=== PATIENT | male | born 1995 | race Two or more races ===

== ENCOUNTER 2018-01-31 07:02 | Inpatient (IN) | payer BC ==
[~2018-01-31] VITALS: Ht 170.2 cm; Wt 72.6 kg
[2018-01-31 07:32] VITALS: BP 112/79
--- NOTE | 2018-01-31 07:32 | Emergency Room Report ---
History of Present Illness General Chief Complaint: Palpitations Source: Patient Present Illness HPI Patient states that around 5:30 this morning he woke up to use the restroom. He states he suddenly became nauseated and shortly thereafter developed palpitations. He states that since that time he has had persistent palpitations. He states it feels like his heart is beating very fast. He states at times it feels like it will slow down and then speed up again. He admits to using marijuana daily and regularly. He denies other drugs such as amphetamines. He does drink occasional alcohol. He denies tobacco use. He denies recent illness. He denies cough or congestion. He denies fever or chills. He denies chest pain or abdominal pain. He has no other complaints. Allergies: Coded Allergies: No Known Allergies (Unverified , 01/31/18) Patient History Past Medical History: see triage record Past Surgical History: appy Social History: Reports: alcohol use - occassional, drug use; Denies: smoking Reviewed Nursing Documentation: PMH: Agreed; PSxH: Agreed Nursing Documentation-PMH Past Medical History: No Stated History Review of Systems All Other Systems: negative except mentioned in HPI Physical Exam Vital Signs Date Time Temp Pulse Resp B/P (MAP) Pulse Ox O2 Delivery O2 Flow Rate FiO2 01/31/18 07:11 98.0 88 18 120/80 98 Room Air 98.1 Sp02 EP Interpretation: reviewed, normal General Appearance: no apparent distress, alert, GCS 15, non-toxic Head: normocephalic, atraumatic Eyes: bilateral eye normal inspection, bilateral eye PERRL ENT: hearing grossly normal, normal pharynx, no angioedema, normal voice Neck: full range of motion, supple/symm/no masses Respiratory: chest non-tender, lungs clear, normal breath sounds, no respiratory distress, no retraction, no accessory muscle use, speaking full sentences Cardiovascular #1: no edema, tachycardia, irregularly irregular Gastrointestinal: normal bowel sounds, non tender, soft, non-distended, no guarding, no rebound Rectal: deferred Musculoskeletal: back normal, gait/station normal, normal range of motion, non- tender Neurologic: alert, oriented x3, responsive, motor strength/tone normal, sensory intact, speech normal Psychiatric: judgement/insight normal, memory normal, mood/affect normal, no suicidal/homicidal ideation Skin: normal color, no rash, warm/dry, well hydrated Medical Decision Making Diagnostic Impression: Primary Impression: Atrial fibrillation with RVR ER Course This patient presents with atrophic fibrillation with a rapid ventricular response. This is unusual in an otherwise healthy young male. He does state that the onset was this morning around 5:30 AM. He was given 2 IV doses of diltiazem. He had improvement in his rate after this but did continue to have a rapid ventricular response. I discussed the case with the on-call [employer] worker Dr. Suazo. He recommended the patient undergo an echocardiogram. The patient did get an echocardiogram here in the emergency department. The echocardiogram results were called to me after the patient was admitted and there were no major findings. Please see official report. He is admitted for monitoring, rate control and possible cardioversion as an inpatient. Laboratory Tests Test 01/31/18 07:32 01/31/18 07:50 White Blood Count 6.8 K/UL (4.8-10.8) Red Blood Count 5.40 M/UL (4.70-6.10) Hemoglobin 17.1 G/DL (14.2-18.0) Hematocrit 48.4 % (42.0-52.0) Mean Corpuscular Volume 90 FL (80-99) Mean Corpuscular Hemoglobin 31.7 PG (27.0-31.0) H Mean Corpuscular Hemoglobin Concent 35.4 G/DL (32.0-36.0) Red Cell Distribution Width 10.2 % (11.6-14.8) L Platelet Count 261 K/UL (150-450) Mean Platelet Volume 6.7 FL (6.5-10.1) Neutrophils (%) (Auto) 53.7 % (45.0-75.0) Lymphocytes (%) (Auto) 31.0 % (20.0-45.0) Monocytes (%) (Auto) 7.2 % (1.0-10.0) Eosinophils (%) (Auto) 6.2 % (0.0-3.0) H Basophils (%) (Auto) 2.0 % (0.0-2.0) Sodium Level 141 MMOL/L (136-145) Potassium Level 3.4 MMOL/L (3.5-5.1) L Chloride Level 105 MMOL/L (98-107) Carbon Dioxide Level 31 MMOL/L (21-32) Anion Gap 6 mmol/L (5-15) Blood Urea Nitrogen 14 mg/dL (7-18) Creatinine 0.9 MG/DL (0.55-1.30) Estimate Glomerular Filtration Rate > 60 mL/min (>60) Glucose Level 107 MG/DL (74-106) H Calcium Level 8.8 MG/DL (8.5-10.1) Total Bilirubin 0.2 MG/DL (0.2-1.0) Aspartate Amino Transferase (AST) 13 U/L (15-37) L Alanine Aminotransferase (ALT) 34 U/L (12-78) Alkaline Phosphatase 106 U/L (46-116) Total Creatine Kinase 78 U/L (26-308) Creatine Kinase MB 1.0 NG/ML (0.0-3.6) Creatine Kinase MB Relative Index 1.2 Troponin I 0.000 ng/mL (0.000-0.056) Total Protein 7.2 G/DL (6.4-8.2) Albumin 4.0 G/DL (3.4-5.0) Globulin 3.2 g/dL Albumin/Globulin Ratio 1.3 (1.0-2.7) Thyroid Stimulating Hormone (TSH) 1.421 uiU/mL (0.358-3.740) Free Thyroxine 1.12 NG/DL (0.76-1.46) Serum Alcohol < 3 mg/dL Urine Opiates Screen Negative (NEGATIVE) Urine Barbiturates Screen Negative (NEGATIVE) Phencyclidine (PCP) Screen Negative (NEGATIVE) Urine Amphetamines Screen Negative (NEGATIVE) Urine Benzodiazepines Screen Negative (NEGATIVE) Urine Cocaine Screen Negative (NEGATIVE) Urine Marijuana (THC) Screen Positive (NEGATIVE) H EKG Diagnostic Results Rate: tachycardiac Rhythm: other - A.fib ST Segments: no acute changes Rhythm Strip Diag. Results EP Interpretation: yes Rate: 140's Rhythm: no PVC's, other - A.fib Chest X-Ray Diagnostic Results Chest X-Ray Diagnostic Results : Chest X-Ray Ordered: Yes # of Views/Limited/Complete: 1 View Indication: Other Interpretation: no consolidation, no effusion, no pneumothorax, no acute cardiopulmonary disease Impression: No acute disease Electronically Signed by: Lashae CT/MRI/US Diagnostic Results CT/MRI/US Diagnostic Results : Imaging Test Ordered: Echocardiogram Impression See official report in EMR Last Vital Signs Date Time Temp Pulse Resp B/P (MAP) Pulse Ox O2 Delivery O2 Flow Rate FiO2 01/31/18 07:11 98.0 88 18 120/80 98 Room Air 98.1 Status: improved Disposition: ADMITTED INPATIENT Condition: Serious Scripts No Active Prescriptions or Reported Meds Karina Muniz DO Jan 31, 2018 07:31
[2018-01-31 07:59] LABS: EOSINOPHILS % (AUTO) 6.2 % (0.0-3.0); HEMATOCRIT 48.4 % (42.0-52.0); HEMOGLOBIN 17.1 G/DL (14.2-18.0); MEAN CORPUSCULAR VOLUME 90 FL (80-99); MONOCYTES % (AUTO) 7.2 % (1.0-10.0); NEUTROPHILS % (AUTO) 53.7 % (45.0-75.0); PLATELET COUNT 261 K/UL (150-450); RED CELL DISTRIBUTION WIDTH 10.2 % (11.6-14.8); WHITE BLOOD COUNT 6.8 K/UL (4.8-10.8)
[2018-01-31 08:23] LABS: ALANINE AMINOTRANSFERASE 34 U/L (12-78); ALBUMIN/GLOBULIN RATIO 1.3 (1.0-2.7); ALKALINE PHOSPHATASE 106 U/L (46-116); ANION GAP 6 mmol/L (5-15); ASPARTATE AMINO TRANSFERASE 13 U/L (15-37); BILIRUBIN,TOTAL 0.2 MG/DL (0.2-1.0); CALCIUM 8.8 MG/DL (8.5-10.1); CARBON DIOXIDE 31 MMOL/L (21-32); CHLORIDE 105 MMOL/L (98-107); CREATINE KINASE 78 U/L (26-308); CREATININE 0.9 MG/DL (0.55-1.30); POTASSIUM 3.4 MMOL/L (3.5-5.1); SODIUM 141 MMOL/L (136-145)
[2018-01-31 08:32] LABS: BLOOD UREA NITROGEN 14 mg/dL (7-18)
[2018-01-31] MEDS ORDERED: dilTIAZem HCl 25mg/5ml Inj IVP ONE ×2 (08:45→13:15)
[2018-01-31 09:00] VITALS: BP 103/85
[2018-01-31 11:00] VITALS: BP 119/83
--- NOTE | 2018-01-31 11:10 | Diagnostic Imaging Report ---
Indication: Chest pain Technique: One view of the chest Comparison: none Findings: Lungs and pleural spaces are clear. The heart size is normal Impression: No acute process
[2018-01-31 13:20] VITALS: BP 115/71
[2018-01-31] MEDS ORDERED: dilTIAZem HCl 60mg tab ORAL ONE (15:30)
[2018-01-31] MEDS ORDERED: dilTIAZem HCl 25mg/5ml Inj IVP SCH (15:33)
[2018-01-31] MEDS ORDERED: Metoprolol 5mg/5ml Inj IVP SCH (15:41)
[2018-01-31] MEDS ORDERED: traMADol 50mg tab ORAL PRN (15:45)
[2018-01-31] MEDS: Metoprolol 25mg tab ORAL SCH (16:03)
--- NOTE | 2018-01-31 17:36 | Cardiology Progress Note ---
Assessment/Plan Assessment/Plan converted to sinus post iv bb keep off meds check d dimer and if abn will do further testing avoid stimulant to review echo exclude congenital heart disease as etiology of afib as well will follow thank you [id number] Objective Last 24 Hour Vital Signs Date Time Temp Pulse Resp B/P (MAP) Pulse Ox O2 Delivery O2 Flow Rate FiO2 01/31/18 16:13 Room Air 01/31/18 16:04 135 125/81 01/31/18 16:03 145 125/81 01/31/18 16:00 86 01/31/18 14:50 98.0 130 16 128/84 99 Room Air 98.0 01/31/18 13:34 135 128/84 01/31/18 13:20 98.0 130 16 115/71 99 Room Air 98.0 01/31/18 11:00 116 16 119/83 100 Room Air 01/31/18 09:00 103 16 103/85 100 Room Air 01/31/18 08:46 133 114/87 01/31/18 07:32 133 16 112/79 100 Room Air 01/31/18 07:11 98.0 88 18 120/80 98 Room Air 98.1 Laboratory Tests Test 01/31/18 07:32 01/31/18 07:50 White Blood Count 6.8 K/UL (4.8-10.8) Red Blood Count 5.40 M/UL (4.70-6.10) Hemoglobin 17.1 G/DL (14.2-18.0) Hematocrit 48.4 % (42.0-52.0) Mean Corpuscular Volume 90 FL (80-99) Mean Corpuscular Hemoglobin 31.7 PG (27.0-31.0) H Mean Corpuscular Hemoglobin Concent 35.4 G/DL (32.0-36.0) Red Cell Distribution Width 10.2 % (11.6-14.8) L Platelet Count 261 K/UL (150-450) Mean Platelet Volume 6.7 FL (6.5-10.1) Neutrophils (%) (Auto) 53.7 % (45.0-75.0) Lymphocytes (%) (Auto) 31.0 % (20.0-45.0) Monocytes (%) (Auto) 7.2 % (1.0-10.0) Eosinophils (%) (Auto) 6.2 % (0.0-3.0) H Basophils (%) (Auto) 2.0 % (0.0-2.0) Sodium Level 141 MMOL/L (136-145) Potassium Level 3.4 MMOL/L (3.5-5.1) L Chloride Level 105 MMOL/L (98-107) Carbon Dioxide Level 31 MMOL/L (21-32) Anion Gap 6 mmol/L (5-15) Blood Urea Nitrogen 14 mg/dL (7-18) Creatinine 0.9 MG/DL (0.55-1.30) Estimat Glomerular Filtration Rate > 60 mL/min (>60) Glucose Level 107 MG/DL (74-106) H Calcium Level 8.8 MG/DL (8.5-10.1) Total Bilirubin 0.2 MG/DL (0.2-1.0) Aspartate Amino Transf (AST/SGOT) 13 U/L (15-37) L Alanine Aminotransferase (ALT/SGPT) 34 U/L (12-78) Alkaline Phosphatase 106 U/L (46-116) Total Creatine Kinase 78 U/L (26-308) Creatine Kinase MB 1.0 NG/ML (0.0-3.6) Creatine Kinase MB Relative Index 1.2 Troponin I 0.000 ng/mL (0.000-0.056) Total Protein 7.2 G/DL (6.4-8.2) Albumin 4.0 G/DL (3.4-5.0) Globulin 3.2 g/dL Albumin/Globulin Ratio 1.3 (1.0-2.7) Thyroid Stimulating Hormone (TSH) 1.421 uiU/mL (0.358-3.740) Free Thyroxine 1.12 NG/DL (0.76-1.46) Serum Alcohol < 3 mg/dL Urine Opiates Screen Negative (NEGATIVE) Urine Barbiturates Screen Negative (NEGATIVE) Phencyclidine (PCP) Screen Negative (NEGATIVE) Urine Amphetamines Screen Negative (NEGATIVE) Urine Benzodiazepines Screen Negative (NEGATIVE) Urine Cocaine Screen Negative (NEGATIVE) Urine Marijuana (THC) Screen Positive (NEGATIVE) Kvng Brown MD Jan 31, 2018 17:36
[2018-01-31 20:00] VITALS: BP 109/61
[2018-01-31] MEDS: Heparin 5000 units/ml inj SUBQ SCH (20:36)
[2018-01-31] MEDS ORDERED: Metoprolol 25mg tab ORAL SCH (21:00)
[2018-02-01] VITALS: BP 102/58
--- NOTE | 2018-02-01 02:45 | Consultation ---
DATE OF CONSULTATION: 01/31/2018 CARDIOLOGY CONSULTATION CONSULTING PHYSICIAN: Kvng Suazo M.D. REFERRING PHYSICIAN: Liliana Muhammad M.D. REASON FOR REFERRAL: Atrial fibrillation with rapid ventricular response. HISTORY OF PRESENT ILLNESS: This is a 22-year-old gentleman, who presented to the hospital emergency room because of palpitations, got up this morning to urinate, developed sensation of nausea he has at times in the morning, but this time was more severe and he felt his heart was beating fast, became lightheaded, felt like he was going to pass out, brought himself to bed, he laid down, persistent symptoms him. He was brought to the emergency room by family members, was noted to have atrial fibrillation with rapid ventricular response at times through my discussion with the emergency room physician, heart rates up to even 200 beats per minute. Diltiazem was given on several occasions with improvement in his heart, but temporarily basis and after discussion with the emergency room physician that the thyroid function test and urine drug screen was negative. The patient was admitted to the hospital for further evaluation. I was notified by the staff on arrival that the patient's heart rate increased up to 170. Beta-blockers were ordered and administered and on my arrival, the patient is back in normal sinus rhythm. There is no pain, pressure, tightness, or heaviness in his chest. He did not have any shortness of breath, no PND, no orthopnea, has just the palpitation as noted and no pain, pressure, or tightness in the chest. He actually has not had any alcoholic beverages since one week ago. He denies any drug use and only takes marijuana. No use of any stimulants, occasionally drinks sodas. PAST MEDICAL HISTORY: Fairly unremarkable except for appendectomy, has no surgical procedure. ALLERGIES: He is not allergic to any medications. SOCIAL HISTORY: He does not smoke. Occasionally drinks alcoholic beverages on rare basis and the only drug that he uses is marijuana, he uses twice a day as recent as last night. REVIEW OF SYSTEMS: GASTROINTESTINAL: Positive for nausea, but no vomiting. No bloody or black stool. GENITOURINARY: No discomfort on urination. No bloody urination. PULMONARY: Negative. CONSTITUTIONAL: Negative. He did feel cold this morning when he was having the episodes. NEUROLOGIC: Negative otherwise. PHYSICAL EXAMINATION: GENERAL: Shows to be a young gentleman, in no respiratory distress. NECK: Supple. No jugular venous distention. No abdominojugular reflux noted. LUNGS: Clear to auscultation and percussion. CARDIAC: S1 is normal. S2 is normal. Regular rate and rhythm. No heaves, thrills, or gallops noted. ABDOMEN: Soft and nontender. Positive bowel sounds. EXTREMITIES: There is no clubbing, cyanosis, or edema. He has good excellent pulses in dorsalis pedis and radials bilaterally. LABORATORY AND DIAGNOSTIC DATA: A chest x-ray performed in the emergency room is fairly unremarkable. Blood tests, white count 6.8, hemoglobin 17.1, and platelet count of 261. Sodium is 141, potassium 3.4, chloride 105, bicarbonate 31, BUN 14, creatinine 0.9, glucose of 107, and calcium is 8.8. AST and ALT are within normal limits. CPK of 78. Troponin 0.00. His free T4 1.14, TSH of 1.421. Albumin of 3.4. Tox screen was positive for marijuana only. Alcohol, cocaine, amphetamines, barbiturates, and opiates were all negative. ASSESSMENT AND PLAN: 1. Paroxysmal episodes of atrial fibrillation. 2. Tachycardia, secondary to atrial fibrillation. 3. History of marijuana use. Dr. Muhammad, this patient was seen in cardiac consultation. The patient was administered some beta-blockers earlier today with complete resolution of his atrial fibrillation back to sinus rhythm. The etiology of the atrial fibrillation in this 22-year-old gentleman is not yet apparent. I would recommend checking a D-dimer and if normal, no further workup will be necessary, would be inclined to, however, if he does have significantly elevated D-dimer to pursue evaluation of his venous duplex and/or even other testing to exclude other etiologies of atrial fibrillation. Structural heart disease of course need to be ruled out. He has already had an echocardiogram, which I will need to review personally, however, no significant abnormalities are noted on the preliminary report. If he remains in sinus rhythm without any further medication and he is able to walk around and other testing if necessary are negative. He may be discharged home today. He is instructed to avoid stimulants in the form of caffeine and/or drugs and/or medications that may cause him to have recurrence of atrial fibrillation and of course notify me if that occurs. Kvng Suazo M.D. DR: JOSE JOB#: [id number] CC:
[2018-02-01 04:00] VITALS: BP 121/83
[2018-02-01 07:56] VITALS: BP 97/59
[2018-02-01] MEDS: Metoprolol 25mg tab ORAL SCH (08:10)
[2018-02-01] MEDS: Heparin 5000 units/ml inj SUBQ SCH (08:14)
[2018-02-01 08:19] LABS: BASOPHILS % (AUTO) 1.8 % (0.0-2.0); EOSINOPHILS % (AUTO) 6.3 % (0.0-3.0); HEMATOCRIT 50.1 % (42.0-52.0); HEMOGLOBIN 17.4 G/DL (14.2-18.0); MEAN CORPUSCULAR VOLUME 89 FL (80-99); MONOCYTES % (AUTO) 5.7 % (1.0-10.0); NEUTROPHILS % (AUTO) 58.2 % (45.0-75.0); PLATELET COUNT 272 K/UL (150-450); RED BLOOD COUNT 5.62 M/UL (4.70-6.10); RED CELL DISTRIBUTION WIDTH 10.3 % (11.6-14.8); WHITE BLOOD COUNT 5.7 K/UL (4.8-10.8)
[2018-02-01 08:51] LABS: ANION GAP 8 mmol/L (5-15); BLOOD UREA NITROGEN 10 mg/dL (7-18); CALCIUM 9.8 MG/DL (8.5-10.1); CARBON DIOXIDE 28 MMOL/L (21-32); CHLORIDE 106 MMOL/L (98-107); CHOLESTEROL 153 MG/DL (< 200); CREATININE 0.8 MG/DL (0.55-1.30); HDL CHOLESTEROL 54 MG/DL (40-60); POTASSIUM 4.3 MMOL/L (3.5-5.1); SODIUM 142 MMOL/L (136-145); TRIGLYCERIDES 85 MG/DL (30-150)
--- NOTE | 2018-02-01 09:49 | General Progress Note ---
Assessment/Plan Assessment/Plan seen and examined. Notes from cardiology reviewed I ordered D-Dimer today Subjective Allergies: Coded Allergies: No Known Allergies (Unverified , 01/31/18) Objective Last 24 Hour Vital Signs Date Time Temp Pulse Resp B/P (MAP) Pulse Ox O2 Delivery O2 Flow Rate FiO2 02/01/18 09:18 Room Air 02/01/18 08:10 62 97/59 02/01/18 08:00 87 02/01/18 07:56 97.2 64 18 97/59 (72) 100 97.2 02/01/18 04:00 96.8 63 16 121/83 (96) 99 96.8 02/01/18 03:32 63 02/01/18 00:00 96.6 84 17 102/58 (73) 92 96.6 01/31/18 23:30 84 01/31/18 21:00 Room Air 01/31/18 20:00 97.5 80 17 109/61 (77) 97 97.5 01/31/18 19:53 83 01/31/18 16:13 Room Air 01/31/18 16:04 135 125/81 01/31/18 16:03 145 125/81 01/31/18 16:00 86 01/31/18 14:50 98.0 130 16 128/84 99 Room Air 98.0 01/31/18 13:34 135 128/84 01/31/18 13:20 98.0 130 16 115/71 99 Room Air 98.0 01/31/18 11:00 116 16 119/83 100 Room Air Intake and Output 01/31/18 02/01/18 19:00 07:00 Intake Total 1230 ml 360 ml Balance 1230 ml 360 ml Intake Oral 230 ml 360 ml IV Total 1000 ml # Voids 6 # Bowel Movements 1 Laboratory Tests 01/31/18 19:15: Troponin I 0.001 02/01/18 01:35: Troponin I 0.015 02/01/18 07:35: Troponin I 0.000, White Blood Count 5.7, Red Blood Count 5.62, Hemoglobin 17.4, Hematocrit 50.1, Mean Corpuscular Volume 89, Mean Corpuscular Hemoglobin 30.9, Mean Corpuscular Hemoglobin Concent 34.6, Red Cell Distribution Width 10.3L, Platelet Count 272, Mean Platelet Volume 6.4L, Neutrophils (%) (Auto) 58.2, Lymphocytes (%) (Auto) 28.0, Monocytes (%) (Auto) 5.7, Eosinophils (%) (Auto) 6.3H, Basophils (%) (Auto) 1.8, Sodium Level 142, Potassium Level 4.3, Chloride Level 106, Carbon Dioxide Level 28, Anion Gap 8, Blood Urea Nitrogen 10, Creatinine 0.8, Estimat Glomerular Filtration Rate > 60, Glucose Level 97, Hemoglobin A1c [Pending], Calcium Level 9.8, Magnesium Level 1.9, Pro-B-Type Natriuretic Peptide 150H, Triglycerides Level 85, Cholesterol Level 153, LDL Cholesterol 78, HDL Cholesterol 54, Cholesterol/HDL Ratio 2.8L Height (Feet): 5 Height (Inches): 7.00 Weight (Pounds): 160 Liliana Muhammad MD Feb 01, 2018 09:49
[2018-02-01 12:03] VITALS: BP 106/52
[2018-02-01 16:00] VITALS: BP 126/77
--- NOTE | 2018-02-01 17:00 | History and Physical Report ---
DATE OF ADMISSION: 01/31/2018 SOURCE OF INFORMATION: The patient and EMR HISTORY OF PRESENT ILLNESS: The patient is a 22-year-old male. The patient presented to the emergency room with acute onset of nausea and feeling palpitation. At the time of initial evaluation in the emergency room, the patient was found to have tachyarrhythmias up to 140. The initial blood work was unremarkable. The patient reported using of THC the day before the incident. Vitals remained stable, otherwise. REVIEW OF SYSTEMS: Reviewed as above. All 14 elements reviewed as above. Pertinent positive and negative as above. Remainder unremarkable. PAST SURGICAL HISTORY: Appendectomy 2014. SOCIAL HISTORY: The patient is working for [employer]. The patient was positive for THC, otherwise denies history of illicit drug abuse. MEDICATIONS: Current hospital medications including, but not limited to subcutaneous heparin, metoprolol 25 mg p.o. b.i.d., and Zofran. DIAGNOSTIC AND LABORATORY DATA: Imaging, dated January 31, shows chest x-ray is unremarkable. Labs, dated January 31, shows sodium 141, potassium 3.4. WBC 6.8, hemoglobin 17.1. Urine drug screen is positive for the marijuana. Notes from Cardiology reviewed. PHYSICAL EXAMINATION: VITAL SIGNS: Blood pressure 130/80, temperature 98.2, pulse oximetry 98% on room air, respiratory rate 18, and pulse rate 110. HEAD AND NECK: Atraumatic and normocephalic. CHEST: Clear to auscultation. No wheezing. No crackles. HEART: S1 and S2. Irregularly irregular. ABDOMEN: Soft. Bowel sounds are normal. MUSCULOSKELETAL: No gross focal motor deficit. NEUROLOGY: Awake, alert, and oriented x3. PSYCHIATRIC: Mood and affect is normal. PLAN OF CARE: We will continue monitoring in the telemetry unit. We will check the D-dimer. The patient is advised about not using THC, which could be the trigger point for the incidence. Liliana Muhammad M.D. DR: MAILE JOB#: [id number] CC: ANGELES
--- NOTE | 2018-02-01 18:59 | Cardiology Report ---
APPROVED REPORT EKG Measurement Heart [id number] Normal sinus rhythm Normal ECG
--- NOTE | 2018-02-01 19:25 | Cardiology Progress Note ---
Assessment/Plan Assessment/Plan 1. Paroxysmal episodes of atrial fibrillation. 2. Tachycardia, secondary to atrial fibrillation. tele sinus tft normal ekg sinus no preexcitation no other sig abn will be off work thur tomorrow wants to goback next day note will be provided to see me within 1 week to er if recurrence will need ziopatch on fu Subjective Cardiovascular: Denies: chest pain, lightheadedness, palpitations Gastrointestinal/Abdominal: Denies: abdominal pain, nausea Genitourinary: Denies: burning Objective Last 24 Hour Vital Signs Date Time Temp Pulse Resp B/P (MAP) Pulse Ox O2 Delivery O2 Flow Rate FiO2 02/01/18 16:00 96.4 66 18 126/77 (93) 98 96.4 02/01/18 16:00 75 02/01/18 12:03 98.4 84 18 106/52 (70) 98 98.4 02/01/18 12:00 77 02/01/18 09:18 Room Air 02/01/18 08:10 62 97/59 02/01/18 08:00 87 02/01/18 07:56 97.2 64 18 97/59 (72) 100 97.2 02/01/18 04:00 96.8 63 16 121/83 (96) 99 96.8 02/01/18 03:32 63 02/01/18 00:00 96.6 84 17 102/58 (73) 92 96.6 01/31/18 23:30 84 01/31/18 21:00 Room Air 01/31/18 20:00 97.5 80 17 109/61 (77) 97 97.5 01/31/18 19:53 83 General Appearance: no apparent distress, alert Neck: normal alignment Cardiovascular: normal rate, regular rhythm Respiratory/Chest: lungs clear Abdomen: normal bowel sounds, non tender, soft Extremities: no swelling Intake and Output 01/31/18 02/01/18 19:00 07:00 Intake Total 1230 ml 360 ml Balance 1230 ml 360 ml Intake Oral 230 ml 360 ml IV Total 1000 ml # Voids 6 # Bowel Movements 1 Laboratory Tests Test 02/01/18 01:35 02/01/18 07:35 02/01/18 11:20 Troponin I 0.015 ng/mL (0.000-0.056) 0.000 ng/mL (0.000-0.056) White Blood Count 5.7 K/UL (4.8-10.8) Red Blood Count 5.62 M/UL (4.70-6.10) Hemoglobin 17.4 G/DL (14.2-18.0) Hematocrit 50.1 % (42.0-52.0) Mean Corpuscular Volume 89 FL (80-99) Mean Corpuscular Hemoglobin 30.9 PG (27.0-31.0) Mean Corpuscular Hemoglobin Concent 34.6 G/DL (32.0-36.0) Red Cell Distribution Width 10.3 % (11.6-14.8) L Platelet Count 272 K/UL (150-450) Mean Platelet Volume 6.4 FL (6.5-10.1) L Neutrophils (%) (Auto) 58.2 % (45.0-75.0) Lymphocytes (%) (Auto) 28.0 % (20.0-45.0) Monocytes (%) (Auto) 5.7 % (1.0-10.0) Eosinophils (%) (Auto) 6.3 % (0.0-3.0) H Basophils (%) (Auto) 1.8 % (0.0-2.0) Sodium Level 142 MMOL/L (136-145) Potassium Level 4.3 MMOL/L (3.5-5.1) Chloride Level 106 MMOL/L (98-107) Carbon Dioxide Level 28 MMOL/L (21-32) Anion Gap 8 mmol/L (5-15) Blood Urea Nitrogen 10 mg/dL (7-18) Creatinine 0.8 MG/DL (0.55-1.30) Estimat Glomerular Filtration Rate > 60 mL/min (>60) Glucose Level 97 MG/DL (74-106) Hemoglobin A1c 5.3 % (4.3-6.0) Calcium Level 9.8 MG/DL (8.5-10.1) Magnesium Level 1.9 MG/DL (1.8-2.4) Pro-B-Type Natriuretic Peptide 150 pg/mL (0-125) H Triglycerides Level 85 MG/DL (30-150) Cholesterol Level 153 MG/DL (< 200) LDL Cholesterol 78 mg/dL (<100) HDL Cholesterol 54 MG/DL (40-60) Cholesterol/HDL Ratio 2.8 (3.3-4.4) L D-Dimer < 0.19 mg/L Kvng Carpio MD Feb 01, 2018 19:25
--- NOTE | 2018-02-01 19:32 | Discharge Instructions ---
Discharge Instructions Discharge Instructions Special Instructions fu with dr suazo with in [address] rodriguez as instructed For Congestive Heart Failure Reminder Report to your physician any weight gain of 5 pounds or more in one week. Kvng Suazo MD Feb 01, 2018 19:32
[2018-02-01 20:00] VITALS: BP 119/77
--- NOTE | 2018-02-02 09:11 | Discharge Summary ---
Discharge Summary Discharge Summary _ DATE OF ADMISSION: 01/31/2018 DATE OF DISCHARGE: 02/01 REASON FOR ADMISSION: 22 years old male without significant past medical history presented to emergency department due to palpitations. Patient was found to be in atrial fibrillation with rapid ventricular response. Patient received 2 doses of Diltiazem with only temporary improvement in heart rate. Laboratory workup was essentially unremarkable. Troponin was negative. Urine toxicology screen was positive for marijuana . TSH was within normal limits . Chest x-ray revealed no acute cardiopulmonary pathology . Potassium 3.4. Patient admitted to telemetry floor with diagnoses of atrial fibrillation with rapid ventricular response, marijuana user. CONSULTANTS: health service coordinator Dr. Suazo [place] [facility] [employer] [facility] COURSE: Patient admitted to telemetry floor. Cardiology closely follow. Beta lorraine was started, and patient subsequently converted to sinus rhythm. No shortness of breath, no orthopnea ,no paroxysmal nocturnal dyspnea . Pulse oximetry stable on room air . No complaints of chest pain . Serial troponin times four negative EKG revealed no acute ischemic finn. Patient was rule out for acute [place]. Echocardiogram revealed preserved ejection fraction 60-65%. No evidence of wall motion abnormalities. Thyroid function test negative. Lipid panel was within normal limits. Potassium was replaced, magnesium was stable. Hemoglobin A1c 5.2. D-dimer was negative. DVT prophylaxis provided. Venous duplex bilateral lower extremity revealed no evidence of acute DVT . EKG continued to be sinus rhythm, no preexcitation or other significant abnormalities. Patient was instructed to avoid stimulants in the form of coffee, drugs, or medications that may cause recurrence of atrial fibrillation. Patient counseled on abstinence from chronic marijuana use. Patient to see health service coordinator in one week. Patient was instructed on return to ED precautions. Patient will need Zio patch on follow-up FINAL DIAGNOSES: Paroxysmal atrial fibrillation Atrial fibrillation with rapid ventricular response Marijuana use DISCHARGE INSTRUCTIONS: Patient was discharged home . Follow up with health service coordinator r in one t week. I have been assigned to dictate discharge summary for this account. I was not involved in the patient's management. Yudy Shaw NP Feb 02, 2018 09:11
--- NOTE | 2018-02-02 16:11 | Diagnostic Imaging Report ---
APPROVED REPORT CPT Code: 44609 Present Symptoms Comments: BILATERAL LEGS PAIN. BILATERAL: Imaging reveals a patent deep venous system bilaterally. There is no evidence of thrombus within the femoral, popliteal or tibial segments. The greater saphenous veins are also within normal limits. Doppler indicates normal spontaneous flow within these segments.
--- NOTE | 2018-02-02 19:34 | Cardiology Report ---
APPROVED REPORT EXAM: Two-dimensional and M-mode echocardiogram with Doppler and color Doppler. INDICATION Arrhythmia M-Mode DIMENSIONS IVSd1.4 (0.7-1.1cm)Left Atrium (MM)2.4 (1.6-4.0cm) LVDd4.1 (3.5-5.6cm)Aortic Root3.5 (2.0-3.7cm) PWd1.4 (0.7-1.1cm)Aortic Cusp Exc.1.6 (1.5-2.0cm) IVSs1.4 cm LVDs3.0 (2.5-4.0cm) PWs1.6 cm Normal left ventricular chamber size, systolic function and wall motion Left ventricular ejection fraction estimated to be 50-55%. No evidence of left ventricular hypertrophy . Small Anterior Echo-free space, may be due to pericardial fat or effusion. All other cardiac chamber sizes are within normal limits. Focal aortic valve sclerosis with adequate cusp excursion. Thickened mitral valve leaflets with normal excursion. Mitral annulus and aortic root calcification. Pulmonic valve not well visualized. Normal tricuspid valve structure. IVC at normal size cm normal size with physiologic collapse. A color flow and spectral Doppler study was performed and revealed: No aortic insufficiency . Trace mitral regurgitation. Left ventricular diastolic dysfunction can not determined due to arrhythmia . Trace tricuspid regurgitation. Tricuspid systolic velocities suggests peak right ventricular systolic pressure of 19mmHg.
== END 2018-02-01 21:30 | disposition home or self-care (01) | DRG 310 ==
LOC: EMR 08:00 → 2E 13:30 → EDBEDREQ 13:44
DX: I48.0 Paroxysmal atrial fibrillation (principal); F12.90 Cannabis use, unspecified, uncomplicated; R00.0 Tachycardia, unspecified
CPT/HCPCS: 36415; 71045; 80048; 80053; 80061; 80307; 80329; 82550; 82553; 83036; 83735; 83880; 84439; 84443; 84484; 85025; 85379; 93005; 93306; 93970; 96361; 96374; 96376; 99285; J8499